=== PATIENT | male | born 1995 | race African-American/Black ===

== ENCOUNTER 2017-11-22 16:04 | Emergency (ER) | END 2017-11-22 19:33 | disposition home or self-care (01) ==

== ENCOUNTER 2018-09-07 04:57 | Emergency (ER) | payer OTHER ==
[~2018-09-07] VITALS: Ht 172.7 cm; Wt 61.1 kg
[~2018-09-07 04:57] MED LIST: IBUP-1542 PO
[2018-09-07 05:01] VITALS: Ht 172.7 cm; Wt 61.1 kg
[2018-09-07] MEDS ORDERED: LIDOCAINE 2% (MDV) 20 ML INJ INJ ONE (06:30)
[2018-09-07] MEDS ORDERED: DIPHTH/TET/ACEL PERTUSS (ADULT) 0.5 ML VIAL IM* ONE (06:30)
[2018-09-07] MEDS ORDERED: IBUPROFEN 600 MG TAB PO ONE (06:30)
[2018-09-07] MEDS ORDERED: CEPH-443 PO (07:07)
--- NOTE | 2018-09-09 04:46 | ERD ---
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 He reports pain which is 8/10 in severity, constant, not alleviated by any medication at home. His last tetanus was unknown. He denies any other symptoms or injuries at this time. ROS All systems reviewed and are negative except as per history of present illness. Medications Home Meds Active Scripts Cephalexin* (Keflex*) 500 Mg Capsule, 500 MG PO QID for 5 Days, CAP Prov:GARRET PEÑA PA-C 09/07/18 Ibuprofen* (Ibuprofen*) 600 Mg Tablet, 600 MG PO Q6, #30 TAB Prov:JULIANA FAIRBANKS PA-C 11/22/17 Allergies Allergies: Coded Allergies: No Known Allergy (Unverified , 11/22/17) PMhx/Soc Medical and Surgical Hx: pt denies Medical Hx, pt denies Surgical Hx Hx Alcohol Use: No Hx Substance Use: No Hx Tobacco Use: No Smoking Status: Never smoker FmHx Family History: No diabetes Physical Exam Vitals Vital Signs Date Temp Pulse Resp B/P (MAP) Pulse Ox O2 O2 Flow FiO2 Time Delivery Rate 09/07/18 97.8 72 18 137/83 99 05:01 (101) Physical Exam Const: No acute distress Head: Atraumatic Eyes: Normal Conjunctiva ENT: Normal External Ears, Nose and Mouth. Neck: Full range of motion. No meningismus. Resp: No respiratory distress. Skin: No petechiae or rashes Back: No midline or flank tenderness Ext: There is an approximate 2 cm laceration noted to the ventral left middle finger without active bleeding or obvious foreign body. Patient is neurovascularly intact distally. Full range of motion of all fingers of the left hand. Neur: Awake and alert Psych: Normal Mood and Affect Results 24 hrs Current Medications Medications Dose Sig/Leobardo Start Time Status Last (Trade) Ordered Route PRN Stop Time Admin Dose Reason Admin Ibuprofen 600 mg ONCE ONCE 09/07/18 DC 09/07/18 (Motrin) PO 06:30 06:26 09/07/18 06:31 Diphtheria/ 0.5 ml ONCE ONCE 09/07/18 DC 09/07/18 Tetanus/Acell IM* 06:30 06:27 Pertussis 09/07/18 06:31 (Adacel) Lidocaine 20 ml ONCE ONCE 09/07/18 DC (Xylocaine INJ 06:30 2% (Mdv) 20 09/07/18 06:31 ml) Procedures/MDM Medical decision making: Patient presents for laceration of the left middle finger. Full risks, benefits, alternatives explained to the patient and he gave verbal consent for sutures. Laceration Repair by me: Anesthesia: 1% lidocaine locally Location: Left middle finger Tendon/Joint/Nerves: No injury Foreign body: None detected after copious irrigation and exploration Technique: 3 Simple Interrupted Sutures Complexity: No subcutaneous sutures/mucosal repair/edge excision Post Closure Length: 2 cm Patient's bleeding was easily controlled in the department and there is no indication of anemia. No evidence of compartment syndrome, neurologic injury, vascular injury, open joint, tendon laceration, or foreign body. Patient is appropriate for outpatient follow up. 48 hour wound check. Scar minimization instructions given. No evidence of life-threatening pathology at time of discharge. Pt/family in agreement with discharge plan/diagnosis. Pt/family advised to return imme diately with any new or worsening symptoms. Follow-up with primary care physician within the next 1-2 days. Departure Diagnosis: Primary Impression: Finger laceration Condition: Fair Patient Instructions: Laceration, Hand Referrals: [facility] YOU HAVE RECEIVED A MEDICAL SCREENING EXAM AND THE RESULTS INDICATE THAT YOU DO NOT HAVE A CONDITION THAT REQUIRES URGENT TREATMENT IN THE EMERGENCY DEPARTMENT. FURTHER EVALUATION AND TREATMENT OF YOUR CONDITION CAN WAIT UNTIL YOU ARE SEEN IN YOUR DOCTORS OFFICE WITHIN THE NEXT 1-2 DAYS. IT IS YOUR RESPONSIBILITY TO MAKE AN APPOINTMENT FOR FOLOW-UP CARE. IF YOU HAVE A PRIMARY DOCTOR --you should call your primary doctor and schedule an appointment IF YOU DO NOT HAVE A PRIMARY DOCTOR YOU CAN CALL OUR PHYSICIAN REFERRAL HOTLINE AT IF YOU CAN NOT AFFORD TO SEE A PHYSICIAN YOU CAN CHOSE FROM THE FOLLOWING [facility] [id number] [facility] [address] [facility] [facility] [address] [facility] [address] [facility] [address] [facility] [facility] [address] Additional Instructions: Call your primary care doctor TOMORROW for an appointment during the next 1-2 days.See the doctor sooner or return here if your condition worsens before your appointment time. Return to this facility in 2 DAYS for a follow-up exam.Return sooner if your condition worsens. Follow up with your physician to remove the stitches:For Face wounds 5-7 days.For Elsewhere on the body 7-10 days. GARRET PEÑA PA-C Sep 09, 2018 04:46
== END 2018-09-07 07:11 | disposition home or self-care (01) ==
LOC: FTE 04:57
DX: S61.213A Laceration without foreign body of left middle finger without damage to nail, initial encounter (principal); W26.0XXA Contact with knife, initial encounter; Y92.9 Unspecified place or not applicable; Z23 Encounter for immunization
CPT/HCPCS: 12001; 90471; 90715; Z7502; Z7610